=== PATIENT | male | born 1980 | race Caucasian/White ===

== ENCOUNTER 2016-07-29 10:49 | Emergency (ER) | payer BC ==
[~2016-07-29] VITALS: Wt 79.0 kg
[~2016-07-29 10:49] MED LIST: CARB15DR48 BOTH EARS
--- NOTE | 2016-07-29 13:01 | ERD ---
ER Documentation Chief Complaint Date/Time DATE: 07/29/16 TIME: 13:00 Chief Complaint bilateral ear pain since last night. HPI This patient is a 35-year-old male with no significant medical history presenting to the emergency department for decreased hearing bilaterally as well as ear pain bilaterally which has been ongoing for 2 days. The patient has not taken any new medication. The patient denies any tinnitus, the patient denies any fevers, chills, nausea, vomiting, diarrhea, other symptoms at this time. ROS All systems reviewed and are negative except as per history of present illness. Medications Home Meds Active Scripts Carbamide Peroxide* (Debrox*) 6.5% - 15 Ml Drops, 10 DROP BOTH EARS BID for 3 Days, #1 BOTTLE Prov:GINGER KELLER MD 07/06/16 Allergies Allergies: Coded Allergies: No Known Allergy (Unverified , 07/06/16) PMhx/Soc Medical and Surgical Hx: pt denies Medical Hx, pt denies Surgical Hx Hx Alcohol Use: Yes (2 DRINKS/WEEK) Hx Substance Use: No Hx Tobacco Use: No FmHx Noncontributory for chief complaint Physical Exam Vitals Vital Signs Date Time Temp Pulse Resp B/P Pulse Ox O2 Delivery O2 Flow Rate FiO2 07/29/16 10:56 97.6 62 18 155/74 99 Physical Exam INITIAL VITAL SIGNS: Reviewed by me. GENERAL: Alert and interactive. No acute distress. HEAD: Head is normocephalic and atraumatic. EYES: EOMI. No scleral icterus. No conjunctival injection. ENT: Moist mucosa. There is cerumen impaction bilaterally. There is no edema or erythema or purulent material present in the external auditory canal. NECK: Supple. Full range of motion. RESPIRATORY: Normal respiratory effort. Clear breath sounds bilaterally. No wheezing, rales, or rhonchi. CV: Regular rate and rhythm. Normal S1 S2. No S3 or S4. No murmurs. ABDOMEN: Soft, non-distended, non-tender. No guarding. No rebound. No masses. EXTREMITIES: No deformity. SKIN: Warm and dry. NEUROLOGIC: Alert and oriented x 4. Speech is normal. Moves all extremities equally. No motor or sensory deficits noted. Procedures/MDM 35-year-old male presents emergency department secondary to complaints of bilateral decreased hearing and slight ear pain. On physical examination there is bilateral cerumen impaction. The cerumen will be disimpacted with bilateral ear lavage. The patient tolerated the procedure well. There was copious amounts of cerumen removed from bilateral external auditory canals. Patient was feeling improved after the procedure. On reexamination the TMs were pearly valencia bilaterally with no erythema or edema. I have low suspicion for otitis media or otitis externa at this time. Patient will be discharged home and he understands the diagnosis and the plan. All questions and concerns were addressed. Departure Diagnosis: Primary Impression: Impacted cerumen of both ears Condition: Stable Additional Instructions: Follow-up with your primary care physician within 1 week. Return to the emergency department immediately should you have any new or worsening symptoms, uncontrolled fevers, or other unexplained symptoms. Take all medications as directed. NEYDA KRAUS PA-C Jul 29, 2016 13:01
== END 2016-07-29 14:19 | disposition left against medical advice (07) ==
LOC: FTE 10:49
DX: H61.23 Impacted cerumen, bilateral (principal)